=== PATIENT | female | born 1975 | race Caucasian/White ===

== ENCOUNTER 2018-08-04 11:01 | Day surgery (SDC) | payer BC, OTHER ==
[2018-08-01 11:19] VITALS: BMI 30.2
[~2018-08-04 11:01] MED LIST: LACTATED RINGERS 1,000 ML IV SCH; LIDOCAINE 1% 20 ML VIAL (10MG/ML) FOR IV START INTRADERMA PRN
[2018-08-04 11:35] VITALS: TEMP 97.7
[2018-08-04] MEDS ORDERED: PROPOFOL 10 MG/ML 20 ML VIAL IV ONE (12:13)
--- NOTE | 2018-08-04 12:29 | P.PCN ---
Date of Procedure: 08/04/18 Procedure(s) Performed: BRIEF HISTORY: Patient is a 42-year-old pleasant white female, scheduled for an elective colonoscopy as a part of evaluation of chronic constipation for the last several years duration. However his symptoms have been progressively getting worse associated with abdominal bloating and abdominal pain. PROCEDURE PERFORMED: Colonoscopy. PREOPERATIVE DIAGNOSIS: Change in bowel habits/abdominal pain. IV sedation per Anesthesia. PROCEDURE: After informed consent was obtained, the patient, was brought into the endoscopy unit. IV sedation was administered by Anesthesia under continuous monitoring. Digital rectal examination was normal. Initially the Olympus CF- 160 flexible video colonoscope was then inserted in the rectum, gradually advanced into the cecum without any difficulty. Careful examination was performed as the scope was gradually being withdrawn. Ileocecal valve and the appendiceal orifice were visualized and appeared normal. Prep was excellent. Mucosa of the cecum, ascending colon, transverse colon, descending colon, sigmoid colon, and rectum appeared normal. Retroflexion was performed in the rectum and no lesions were seen. The patient tolerated the procedure well. IMPRESSION: Normal-appearing colon from rectum to cecum with no evidence of colorectal neoplasia. RECOMMENDATIONS: Findings of this examination were discussed with the patient as well as her family. She was advised to have a repeat colonoscopy in 10 years.
[2018-08-04 12:49] VITALS: PULSE 66; RESP 18
[2018-08-04 13:06] VITALS: BP 117/80
== END 2018-08-04 13:46 | disposition home or self-care (01) ==
LOC: ORWHC2ENDO 11:01
PROVIDERS: ATTEND Internal Medicine Gastroenterology
DX: K59.09 Other constipation (principal); R10.9 Unspecified abdominal pain; R14.0 Abdominal distension (gaseous); J45.909 Unspecified asthma, uncomplicated; E07.9 Disorder of thyroid, unspecified; Z79.899 Other long term (current) drug therapy; Z87.891 Personal history of nicotine dependence
CPT/HCPCS: 81025; 45378; J2704

== ENCOUNTER → 2018-10-05 | Outpatient (CLI) | payer BC | LOC: LABWHC1 14:58 | PROVIDERS: ATTEND Internal Medicine Endocrinology, Diabetes & Metabolism | DX: E05.90 Thyrotoxicosis, unspecified without thyrotoxic crisis or storm (principal) | CPT/HCPCS: 36415; 84439; 84443; 84445; 84480 ==

== ENCOUNTER → 2018-10-18 | Outpatient (CLI) | payer BC ==
--- NOTE | 2018-10-24 09:58 | MM ---
Reason for exam: screening (asymptomatic). Last mammogram was performed 4 years and 4 months ago. Physical Findings: A clinical breast exam by your physician is recommended on an annual basis and results should be correlated with mammographic findings. MG 3D Screening Mammo W/Cad Bilateral CC and MLO view(s) were taken. Prior study comparison: June 14, 2014, mammogram, performed at [facility]. The breast tissue is heterogeneously dense. This may lower the sensitivity of mammography. There is no discrete abnormality. No significant changes when compared with prior studies. ASSESSMENT: Negative, BI-RAD 1 RECOMMENDATION: Routine screening mammogram of both breasts in 1 year.
== END | disposition home or self-care (01) ==
LOC: RADMAMWWP 11:28
PROVIDERS: ATTEND Family Medicine
DX: Z12.31 Encounter for screening mammogram for malignant neoplasm of breast (principal)
CPT/HCPCS: 77063; 77067

== ENCOUNTER → 2018-10-25 | Outpatient (CLI) | payer BC ==
--- NOTE | 2018-10-26 09:44 | NM ---
EXAMINATION TYPE: NM thyroid image w uptake DATE OF EXAM: 10/26/2018 COMPARISON: Prior exam 12/06/2014 HISTORY: Thyrotoxicosis TECHNIQUE: Thyroid iodine uptake is calculated and images performed after the oral administration of 309 uCi 1-123 Capsule. FINDINGS: There is probable increased activity throughout the gland. The gland may be enlarged. The 4 hour iodine uptake is calculated at 24.5% (normal range 8-14%). The 24-hour iodine uptake is calcula caty at 54.0% (normal range 15-35%). IMPRESSION: Correlate for Graves' disease.
== END | disposition home or self-care (01) ==
LOC: RADNMMAIN 08:45
PROVIDERS: ATTEND Internal Medicine Endocrinology, Diabetes & Metabolism
DX: E05.90 Thyrotoxicosis, unspecified without thyrotoxic crisis or storm (principal); E04.1 Nontoxic single thyroid nodule
CPT/HCPCS: 78014; A9516

== ENCOUNTER → 2018-12-18 | Outpatient (CLI) | payer BC ==
[2018-12-18 23:41] LABS: T4, Free (Free Thyroxine) 0.8 ng/dL (0.80-1.80)
== END | disposition home or self-care (01) ==
LOC: LABWHC1 14:56
PROVIDERS: ATTEND Internal Medicine Endocrinology, Diabetes & Metabolism
DX: E05.90 Thyrotoxicosis, unspecified without thyrotoxic crisis or storm (principal)
CPT/HCPCS: 36415; 84439; 84443; 84481

== ENCOUNTER → 2019-04-07 | Outpatient (CLI) | payer BC ==
[2019-04-07 21:11] LABS: T4, Free (Free Thyroxine) 0.7 ng/dL (0.80-1.80)
== END | disposition home or self-care (01) ==
LOC: LABWHC1 08:09
PROVIDERS: ATTEND Internal Medicine Endocrinology, Diabetes & Metabolism
DX: E04.1 Nontoxic single thyroid nodule (principal); E05.90 Thyrotoxicosis, unspecified without thyrotoxic crisis or storm
CPT/HCPCS: 36415; 84439; 84443; 84480

== ENCOUNTER → 2019-04-07 | Outpatient (CLI) | payer BC ==
[2019-04-07 08:40] LABS: Basophils % (A) 1 %; Eosinophils # (A) 0.2 k/uL (0-0.7); Eosinophils % (A) 5 %; HCT 37.3 % (34.0-46.0); HGB 12.4 gm/dL (11.4-16.0); Lymphocytes # (A) 1.3 k/uL (1.0-4.8); Lymphocytes % (A) 28 %; MCH 31.9 pg (25.0-35.0); MCHC 33.2 g/dL (31.0-37.0); MCV 96.2 fL (80.0-100.0); Mean Platelet Volume 8.8; Monocytes # (A) 0.3 k/uL (0-1.0); Monocytes % (A) 5 %; Neutrophils # (A) 2.8 k/uL (1.3-7.7); Neutrophils % (A) 59 %; Platelet Count 189 k/uL (150-450); RBC 3.88 m/uL (3.80-5.40); RDW 13.8 % (11.5-15.5); WBC 4.7 k/uL (3.8-10.6)
[2019-04-07 08:59] LABS: African American GFR (CKD) >90 (>60 ml/min/1.73 sqM); Anion Gap 5 mmol/L; Blood Urea Nitrogen 16 mg/dL (7-17); Carbon Dioxide 30 mmol/L (22-30); Chloride 105 mmol/L (98-107); Glucose 91 mg/dL (74-99); Potassium 4.1 mmol/L (3.5-5.1); Sodium 140 mmol/L (137-145)
== END | disposition home or self-care (01) ==
LOC: LABPAT 08:07
PROVIDERS: ATTEND Obstetrics & Gynecology
DX: Z01.812 Encounter for preprocedural laboratory examination (principal)
CPT/HCPCS: 80051; 82565; 82947; 84520; 85025; 86850; 86900; 86901; 87086

== ENCOUNTER 2019-04-16 05:42 | Observation (INO) | payer BC ==
[2019-04-10 10:11] VITALS: BMI 31.9
--- NOTE | 2019-04-12 11:31 | HP ---
HISTORY AND PHYSICAL H and P for surgery on April 16. This is a 43-year-old white female, 4, para 3-0-1-3. Patient presented initially to the office with irregular menses, occurring approximately every 14 to 21 days, lasting 7 days in duration. She complained that they were very heavy with large clots. She has no intermenstrual bleeding. She underwent a vaginal ultrasound as well as endometrial biopsy. All risks and benefits of the procedure have been discussed with her in detail. Option for Mirena IUD and/or endometrial ablation have both been declined. PAST MEDICAL HISTORY: Significant for asthma and thyroid disorder. PAST SURGICAL HISTORY: D and C for missed AB, left and right knee arthroscopies in 2016. ALLERGIES: None known. FAMILY HISTORY: Noncontributory. SOCIAL HISTORY: Patient admits to 3 alcoholic beverages weekly, she is a former tobacco smoker and quit in early 2018. 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 She denies illicit drug use. PHYSICAL EXAMINATION: On exam, this is a pleasant female who is 5 feet 6.5 inches, 198 pounds, BMI 31.5. Blood pressure 122/70. HEENT exam reveals no thyromegaly. Trachea midline, no obvious cervical lymphadenopathy. Breast exam reveals breasts to be bilaterally symmetric with no skin dimpling, nipple discharge, or axillary adenopathy. Chest is clear to auscultation in all crane anteriorly and posteriorly. Cardiac exam reveals regular rate and rhythm with no murmur, click, or rub. Abdomen is soft, nontender, no obvious organosplenomegaly. Extremities revealed no edema, good peripheral pulses, normal range of motion. On pelvic examination, cervix is multiparous, Pap smear is up to date and within normal limits. Uterus is small, mobile, nontender, with a small amount of descensus noted on grasping the anterior lip of the cervix with a ring forceps. Adnexa are negative, smooth, mobile and small, equal bilaterally. There is no obvious rectocele or cystocele noted. Rectal exam reveals good sphincter tone, FIT negative stool sample. Endometrial biopsy results are consistent with proliferative type endometrium with breakdown. IMPRESSION: Menometrorrhagia, normal endometrial sampling, minimal descensus. Patient declining Mirena IUD or ablation, strongly wishing for vaginal hysterectomy. PLAN: We will proceed with vaginal hysterectomy at [facility]. The patient is aware of the risks of bleeding, infection, perforation or damage to bowel, bladder, ureters, blood vessels, or indeed any pelvic or abdominal organs. She understands the risks of anesthesia to be aspiration, nerve damage, or even remotely the possibility of . The ACOG pamphlet on this procedure has been given to the patient for her thorough review. All questions answered to her satisfaction. I believe the patient understands our discussion without reservation. The remote but possible scenario of total abdominal hysterectomy is also reviewed with the patient if vaginal surgery is deemed to be unsuccessful. MMODL / IJN: [id number] /
[~2019-04-16 05:42] MED LIST changes: +DEXAMETHASONE SOD PHOSPHATE 10 MG/ML 1 ML VIAL IV ONE; -LACTATED RINGERS 1,000 ML IV SCH; +MIDAZOLAM 2 MG/2 ML VIAL IV PRN; +fentaNYL (PF) 50 MCG/ML 2 ML AMP IVP PRN
[2019-04-16] MEDS ORDERED: LACTATED RINGERS 1,000 ML IV ONE (06:26)
[2019-04-16] MEDS ORDERED: ONDANSETRON 4 MG/2 ML VIAL IVP ONE (06:27)
[2019-04-16] MEDS ORDERED: PROPOFOL 10 MG/ML 20 ML VIAL IV ONE (07:26)
[2019-04-16] MEDS ORDERED: MIDAZOLAM 2 MG/2 ML VIAL ONE (07:26)
[2019-04-16] MEDS ORDERED: MORPHINE SULFATE (PF) 0.3 MG/0.3 ML SYR ONE (07:26)
[2019-04-16] MEDS ORDERED: ePHEDrine SULFATE/0.9% NACL/PF 50 MG/5 ML SYRINGE IV ONE (07:26)
[2019-04-16] MEDS ORDERED: VASOPRESSIN 20 UNIT/ML 1 ML VIAL SQ ONE (07:45)
[2019-04-16] MEDS ORDERED: BACITRACIN 500 UNIT/GM OINT 28.4 GM TUBE TOPICAL ONE ×2 (07:56→08:04)
[2019-04-16] MEDS ORDERED: IBUPROFEN 600 MG TAB PO PRN (08:22)
[2019-04-16] MEDS ORDERED: METOCLOPRAMIDE 5 MG/ML 2 ML VIAL IVP PRN (08:22)
[2019-04-16] MEDS ORDERED: ONDANSETRON 4 MG/2 ML VIAL IVP PRN (08:22)
[2019-04-16] MEDS ORDERED: diphenhydrAMINE 50 MG/ML 1 ML VIAL IVP PRN (08:22)
[2019-04-16] MEDS ORDERED: SIMETHICONE 80 MG CHEWABLE PO PRN (08:22)
[2019-04-16] MEDS ORDERED: ZOLPIDEM 5 MG TAB PO PRN (08:22)
--- NOTE | 2019-04-16 08:22 | P.OP ---
Date of Procedure: 04/16/19 Preoperative Diagnosis: Menorrhagia, dysmenorrhea Postoperative Diagnosis: Same, normal-appearing ovaries bilaterally Procedure(s) Performed: Vaginal hysterectomy Anesthesia: CADENA Surgeon: Caterina Hummel [employer] Consultant #1: Cheko Villar Estimated Blood Loss (ml): 50 IV fluids (ml): 500 Urine output (ml): 225 Pathology: other (cervix and uterus) Condition: stable Disposition: PACU Operative Findings: Normal-appearing ovaries bilaterally, grade 2 rectocele, grade 2 cystocele Description of Procedure: Patient is brought to the operating suite where a spinal with Duramorph is placed. She is positioned in the dorsal lithotomy position. The cervix, vagina, perineal bodies are all prepped and draped in usual sterile fashion. The appropriate timeout is performed to assure proper patient and procedural identification. Urine hCG is negative, antibiotics are given. Weighted speculum was placed into the vagina. Bladder is drained for approximate 225 mL of clear yellow urine. Anterior lip of the cervix is grasped with a double- tooth tenaculum. A grade 2 cystocele along with a grade 2 rectocele is appreciated. The cervix is injected circumferentially with a dilute Pitressin solution, 10 mL used. Jerauld blade scalpel is used to incise the mucosa circumferentially with a V positioning at 6:00. A sponge rolled finger is used to sweep the mucosa from the underlying fascial plane. Peritoneum is entered at 6:00, suture tied with 2-0 Vicryl suture held with a hemostat. The large billed speculum is then placed. The mucosa is swept away from the underlying planes, to avoid any bladder and/or ureteral injury. The right uterosacral ligament is identified, clamped cut and suture tied and held laterally with a hemostat. Same procedure is carried out contralaterally. Uterine vasculature is identified, clamped cut and suture ligated. 2 additional pedicles are taken superior to the vessels. Anterior peritoneum is entered. The uterus is then "walked out" posteriorly. Nuzhat clamps are used across the final pedicles. The uterus and cervix are removed and sent to pathology for evaluation. The pedicles are tied with 0 Vicryl suture, flashed, and retied for excellent hemostasis. A sponge stick is used to identify the ovaries, they are para quite normal and therefore are left in situ per the patient's wishes. The speculum is then changed to the shallow billed speculum. The 2-0 Vicryl suture placed at 6:00 is brought around in a pursestring fashion and the peritoneum is closed. The uterosacral cardinal ligaments are now brought across to incorporate the opposite ligament as well as the vaginal mucosa. An additional yyfflk-bt-luwha sutures placed inferiorly. 2 additional yroiru-kw-mcmuu sutures are placed superiorly, and the vagina is completely closed. It is clean and dry. Hemostasis is excellent. Vagina is packed with one-inch iodophor gauze with basic tracing. Montes catheter is placed in the urine is noted to be normal and clear. All sponge needle and enhancement counts are correct at the end of the procedure. Patient is brought back to the recovery room in very stable condition with vital signs 139/80, pulse 74, 100% O2 saturation.
[2019-04-16] MEDS ORDERED: MORPHINE SULFATE 2 MG/ML SYRINGE IVP PRN (08:42)
[2019-04-16] MEDS ORDERED: NALOXONE 0.4 MG/ML 1 ML VIAL IV PRN (08:42)
[2019-04-16] MEDS: LACTATED RINGERS 1,000 ML IV SCH (13:17)
[2019-04-16] MEDS: NALBUPHINE 10 MG/ML (1 ML AMP) IV PRN ×2 (14:17→19:59)
[2019-04-16] MEDS: KETOROLAC 30 MG/ML 1 ML VIAL IVP PRN ×2 (15:59→21:59)
[2019-04-17] MEDS: KETOROLAC 30 MG/ML 1 ML VIAL IVP PRN (04:02)
[2019-04-17] MEDS: LACTATED RINGERS 1,000 ML IV SCH (06:32)
--- NOTE | 2019-04-17 07:41 | P.DS ---
Providers Date of admission: 04/16/19 22:30 Expected date of discharge: 04/17/19 Attending physician: Caterina Hummel Primary care physician: [place] [facility] Course: This is a 43-year-old female who presented with increasing menorrhagia and dysmenorrhea. After thorough consultation, she elected to proceed with vaginal hysterectomy. Patient is essentially healthy, please see my dictated history and physical for details. Patient underwent vaginal hysterectomy along with a spinal with Duramorph yesterday under my care. She did very well intraoperatively, ovaries appeared normal to inspection and therefore were left in situ per the patient's wishes. She was noted to have a rectocele and cystocele as well at the time of surgery, this was asymptomatic. Please see dictated operative note for details. This morning the patient is doing well. Vaginal packing and Montes catheter had been removed. She is passing flatus. She complains of no pain. Vital signs are stable and she is afebrile. Chest is clear in all crane. There is no CVA tenderness. Extremities are negative for edema. Patient is judged to be in very good condition for discharge home. She will follow-up with me in the office in 2 weeks. She is reminded no intercourse, tampons or douching. She will use [id number] Advil or Aleve, or ibuprofen as needed for pain. I've asked her to call me with any fevers shakes or chills, foul smelling or bloody vaginal drainage, with any issues with defecating or voiding, or indeed with any concerns. She will call with any pain not alleviated by hqaa-eqm-noeghul products. Patient Condition at Discharge: Good Plan - Discharge Summary Discharge Rx Participant: No New Discharge Prescriptions: No Action Cetirizine HCl [Zyrtec] 10 mg PO DAILY Acetaminophen Tab [Tylenol Tab] 1,000 mg PO Q6HR PRN PRN Reason: Pain Methimazole 7.5 mg PO DAILY Linaclotide [Linzess] 72 mcg PO DAILY Discharge Medication List Acetaminophen Tab [Tylenol Tab] 1,000 mg PO Q6HR PRN 04/10/19 [History] Cetirizine HCl [Zyrtec] 10 mg PO DAILY 04/10/19 [History] Linaclotide [Linzess] 72 mcg PO DAILY 04/10/19 [History] Methimazole 7.5 mg PO DAILY 04/10/19 [History] Follow up Appointment(s)/Referral(s): Caterina Hummel MD [STAFF PHYSICIAN] - 2 Weeks
--- NOTE | 2019-04-17 07:52 | P.PN ---
Progress Note - Text Date:04/16 Time:705am Patient is status post vaginal hystrectomy. Patient seen this morning with VAS score of 2. c/o of pruritus, no c/o nausea/vomiting, comfortable and doing well.
[2019-04-17 08:12] VITALS: BP 110/58; PULSE 61; RESP 18; TEMP 97.5
== END 2019-04-17 10:10 | disposition home or self-care (01) ==
LOC: OR 05:42 → 4FBP 08:17 → OR 22:29 → 4FBP 22:30
PROVIDERS: ADMIT Obstetrics & Gynecology; ATTEND Obstetrics & Gynecology
DX: N80.0 Endometriosis of uterus (principal); N92.1 Excessive and frequent menstruation with irregular cycle; N94.6 Dysmenorrhea, unspecified; N81.6 Rectocele; N81.10 Cystocele, unspecified; J45.909 Unspecified asthma, uncomplicated; E07.9 Disorder of thyroid, unspecified; Z87.891 Personal history of nicotine dependence
CPT/HCPCS: 58260; 81025; 86900; 86901; 86850; 88307; G0378 ×2; J2250; J1200; J1100; J2300; J0690; J2405; J2274; J1885 ×2; J2704

== ENCOUNTER → 2019-07-16 | Outpatient (CLI) | payer BC | END | disposition home or self-care (01) | LOC: LABWHC1 09:01 | PROVIDERS: ATTEND Internal Medicine Endocrinology, Diabetes & Metabolism | DX: E05.90 Thyrotoxicosis, unspecified without thyrotoxic crisis or storm (principal) | CPT/HCPCS: 36415; 84439; 84443; 84480 ==

== ENCOUNTER 2020-08-17 20:08 | Emergency (ER) | payer BC ==
[2020-08-17 20:23] VITALS: RESP 18
[2020-08-17] MEDS ORDERED: ACETAMINOPHEN TAB 325 MG TAB PO STA (20:35)
[2020-08-17 21:13] LABS: Basophils % (A) 0 %; Eosinophils # (A) 0.1 k/uL (0-0.7); Eosinophils % (A) 1 %; HCT 37.9 % (34.0-46.0); HGB 13.4 gm/dL (11.4-16.0); Lymphocytes # (A) 2.1 k/uL (1.0-4.8); Lymphocytes % (A) 18 %; MCHC 35.4 g/dL (31.0-37.0); MCV 93.2 fL (80.0-100.0); Mean Platelet Volume 9.3; Monocytes # (A) 0.6 k/uL (0-1.0); Monocytes % (A) 5 %; Neutrophils # (A) 8.5 k/uL (1.3-7.7); Neutrophils % (A) 75 %; Platelet Count 256 k/uL (150-450); RBC 4.06 m/uL (3.80-5.40); RDW 12.1 % (11.5-15.5); WBC 11.3 k/uL (3.8-10.6)
[2020-08-17 21:29] LABS: Albumin 4.5 g/dL (3.5-5.0); Calcium 10.4 mg/dL (8.4-10.2); Total Bilirubin 0.4 mg/dL (0.2-1.3); Total Protein 7.5 g/dL (6.3-8.2)
--- NOTE | 2020-08-17 21:34 | XR ---
EXAMINATION TYPE: XR chest 1V portable DATE OF EXAM: 08/17/2020 COMPARISON: NONE HISTORY: Short of breath TECHNIQUE: FINDINGS: Heart and mediastinum are normal. Lungs are clear. Diaphragm is normal. Bony thorax appears normal. IMPRESSION: Normal chest.
[2020-08-17 21:42] LABS: INR 0.9 (<1.2); Prothrombin Time 9.5 sec (9.0-12.0)
[2020-08-17 21:51] LABS: D-Dimer 0.71 mg/L FEU (<0.60); Partial Thromboplastin Time 21.1 sec (22.0-30.0)
[2020-08-17] MEDS ORDERED: SODIUM CHLORIDE 0.9% 1,000 ML IV ONE (22:06)
--- NOTE | 2020-08-17 22:29 | CT ---
EXAMINATION TYPE: CT chest angio for PE DATE OF EXAM: 08/17/2020 COMPARISON: None HISTORY: Cough, covid +. CT DLP: 336.5 mGycm Automated exposure control for dose reduction was used. CONTRAST: Performed with IV Contrast, patient injected with 100ml mL of Isovue 370. There are 3-D post processed images. The lungs are clear of infiltrate. There is no evidence of a pulmonary mass. There is no pleural effu krystal. Heart size is normal. There is no pericardial effusion. There is no mediastinal adenopathy. Thoracic aorta appears normal. There is no aneurysm or dissection . There are no hilar masses. There is normal contrast opacification of the pulmonary arteries. There are no filling defects. Bony thorax is intact. IMPRESSION: Negative exam. No evidence of pulmonary embolism.
[2020-08-17 22:47] VITALS: BP 122/70; PULSE 75; TEMP 97.2
--- NOTE | 2020-08-17 23:06 | ED ---
General Adult HPI - General Source: patient, RN notes reviewed, old records reviewed Mode of arrival: ambulatory Limitations: no limitations <Robert Ahn - Last Filed: 08/17/20 23:31> <Nichole Cook - Last Filed: 08/21/20 09:38> - General Chief complaint: Upper Respiratory Infection Stated complaint: +COVID, SOB Time Seen by Provider: 08/17/20 20:25 - History of Present Illness Initial comments: 44-year-old female patient who was tested positive for coronavirus on 08/02 presents to ED for evaluation. Patient reports that she is continuing to have worse of breath with exertion. Reports that she is coughing and has some chest pain with coughing. She was placed on steroids azithromycin and inhaler by her primary care provider. She is taking a multivitamin. She denies any other complaints. Systemic: Pt denies fatigue, fever/chills, rash. Pt denies weakness, night sweats, weight loss. Neuro: Pt denies headache, visual disturbances, syncope or pre-syncope. HEENT: Pt denies ocular discharge or irritation, otalgia, rhinorrhea, pharyngitis or notable lymphadenopathy. Cardiopulmonary: Pt denies chest pain, heart palpitations, dyspnea on exertion. Abdominal/GI: Pt denies abdominal pain, n/v/d. : Pt denies dysuria, burning w/ urination, frequency/urgency. Denies new onset urinary or bowel incontinence. MSK: Pt denies myalgia, loss of strength or function in extremities. Neuro: Pt denies new onset weakness, paresthesias. (Robert Ahn) - Related Data Home Medications Medication Instructions Recorded Confirmed Acetaminophen Tab [Tylenol Tab] 1,000 mg PO Q6HR PRN 04/10/19 04/10/19 Cetirizine HCl [Zyrtec] 10 mg PO DAILY 04/10/19 04/10/19 Linaclotide [Linzess] 72 mcg PO DAILY 04/10/19 04/10/19 methIMAzole [Methimazole] 7.5 mg PO DAILY 04/10/19 04/10/19 Allergies Allergy/AdvReac Type Severity Reaction Status Date / Time steroid Allergy Unknown Uncoded 08/17/20 20:23 Review of Systems ROS Other: All systems not noted in ROS Statement are negative. <Robert Ahn - Last Filed: 08/17/20 23:31> ROS Other: All systems not noted in ROS Statement are negative. <Nichole Cook - Last Filed: 08/21/20 09:38> ROS Statement: Those systems with pertinent positive or pertinent negative responses have been documented in the HPI. Past Medical History Past Medical History: Asthma, Osteoarthritis (OA), Thyroid Disorder Additional Past Medical History / Comment(s): constipation, nodule on thyroid, IRREGULAR MENSES History of Any Multi-Drug Resistant Organisms: None Reported Past Surgical History: Orthopedic Surgery Additional Past Surgical History / Comment(s): nisha knee arthroscopy (2 each knee), D & C , Past Anesthesia/Blood Transfusion Reactions: Previous Problems w/ Anesthesia Additional Past Anesthesia/Blood Transfusion Reaction / Comment(s): sister and son: PONV Past Psychological History: No Psychological Hx Reported Smoking Status: Never smoker Past Alcohol Use History: Rare Past Drug Use History: None Reported - Past Family History Mother Additional Family Medical History / Comment(s): AORTIC ANEURYSM <Robert Ahn - Last Filed: 08/17/20 23:31> General Exam Limitations: no limitations <Robert Ahn - Last Filed: 08/17/20 23:31> - General Exam Comments Initial Comments: Constitutional: NAD, AOX3, Pt has pleasant affect. HEENT: NC/AT, trachea midline, neck supple, no lymphadenopathy. Posterior pharynx non erythematous, without exudates. External ears appear normal, without discharge. Mucous membranes moist. Eyes PERRLA, EOM intact. There is no scleral icterus. No pallor noted. Cardiopulmonary: RRR, no murmurs, rubs or gallops, no JVD noted. Lungs CTAB in anterior and posterior crane. No peripheral edema. Abdominal exam: Abdomen soft and non-distended. Abdomen non-tender to palpation in all 4 quadrants. Bowel sounds active in LLQ. No hepatosplenomegaly. No ecchymosis Neuro: CN II-XII grossly intact. No nuchal rigidity. MSK: No posterior calf tenderness bilaterally, homans sign negative bilaterally. Posterior tibialis and radial pulse +2 bilaterally. Sensation intact in upper and lower extremities. Full active ROM in upper and lower extremities, 5/5 stregnth. (Robert Ahn) Course Vital Signs 08/17/20 08/17/20 20:19 22:46 Temperature 98.4 F 97.2 F L Pulse Rate 79 75 Respiratory 18 18 Rate Blood Pressure 124/81 122/70 O2 Sat by Pulse 100 100 Oximetry Procedures - [place] Protocol (Time Out) Nurse: Clara Desir <Robert Ahn - Last Filed: 08/17/20 23:31> Medical Decision Making - Lab Data Result diagrams: 08/17/20 20:56 08/17/20 20:56 - EKG Data -: EKG Interpreted by Me (and Dr. Irizarry ) <Robert Ahn - Last Filed: 08/17/20 23:31> - Lab Data Result diagrams: 08/17/20 20:56 08/17/20 20:56 <Nichole Cook - Last Filed: 08/21/20 09:38> - Medical Decision Making 44 old female patient to ED for evaluation shortness of breath with active color infection. Patient vital signs are stable, afebrile. Physical exam negative for acute pathology. Labs investigations reveal leukocytosis likely secondary steroids. CTA was negative for acute PE or pneumonia. EKG is nonischemic. Patient will be discharged. Will follow up with PCP tomorrow and return to ED with any worsening symptoms. Case discussed with Dr. Cook, (Robert Ahn) I was available for consultation in the emergency department. The history and physical exam were done by the midlevel provider. I was consulted for this patients care. I reviewed the case with the midlevel provider and based on their presentation of the patient, I agree with the assessment, medical decision making and plan of care as documented. Chart was dictated using [employer] dictation software. Attempts were made to correct any dictation errors however some typographical errors may persist. Patient seen during the Covid-19 pandemic. (Nichole Cook) - Lab Data Lab Results 08/17/20 08/17/20 08/17/20 Range/Units 20:55 20:56 20:56 WBC 11.3 H (3.8-10.6) k/uL RBC 4.06 (3.80-5.40) m/uL Hgb 13.4 (11.4-16.0) gm/dL Hct 37.9 (34.0-46.0) % MCV 93.2 (80.0-100.0) fL MCH 33.0 (25.0-35.0) pg MCHC 35.4 (31.0-37.0) g/dL RDW 12.1 (11.5-15.5) % Plt Count 256 (150-450) k/uL MPV 9.3 Neutrophils % 75 % Lymphocytes % 18 % Monocytes % 5 % Eosinophils % 1 % Basophils % 0 % Neutrophils # 8.5 H (1.3-7.7) k/uL Lymphocytes # 2.1 (1.0-4.8) k/uL Monocytes # 0.6 (0-1.0) k/uL Eosinophils # 0.1 (0-0.7) k/uL Basophils # 0.0 (0-0.2) k/uL PT 9.5 (9.0-12.0) sec INR 0.9 (<1.2) APTT 21.1 L (22.0-30.0) sec D-Dimer 0.71 H (<0.60) mg/L FEU Sodium (137-145) mmol/L Potassium (3.5-5.1) mmol/L Chloride (98-107) mmol/L Carbon Dioxide (22-30) mmol/L Anion Gap mmol/L BUN (7-17) mg/dL Creatinine (0.52-1.04) mg/dL Est GFR (CKD-EPI)AfAm (>60 ml/min/1.73 sqM) Est GFR (CKD-EPI)NonAf (>60 ml/min/1.73 sqM) Glucose (74-99) mg/dL Plasma Lactic Acid Saul (0.7-2.0) mmol/L Calcium (8.4-10.2) mg/dL Magnesium (1.6-2.3) mg/dL Ferritin (10.0-291.0) ng/mL Total Bilirubin (0.2-1.3) mg/dL AST (14-36) U/L ALT (4-34) U/L Alkaline Phosphatase (38-126) U/L Lactate Dehydrogenase (313-618) U/L Troponin I <0.012 (0.000-0.034) ng/mL C-Reactive Protein (<10.0) mg/L Total Protein (6.3-8.2) g/dL Albumin (3.5-5.0) g/dL Procalcitonin (0.02-0.09) ng/mL 08/17/20 08/17/20 08/17/20 Range/Units 20:56 20:56 20:56 WBC (3.8-10.6) k/uL RBC (3.80-5.40) m/uL Hgb (11.4-16.0) gm/dL Hct (34.0-46.0) % MCV (80.0-100.0) fL MCH (25.0-35.0) pg MCHC (31.0-37.0) g/dL RDW (11.5-15.5) % Plt Count (150-450) k/uL MPV Neutrophils % % Lymphocytes % % Monocytes % % Eosinophils % % Basophils % % Neutrophils # (1.3-7.7) k/uL Lymphocytes # (1.0-4.8) k/uL Monocytes # (0-1.0) k/uL Eosinophils # (0-0.7) k/uL Basophils # (0-0.2) k/uL PT (9.0-12.0) sec INR (<1.2) APTT (22.0-30.0) sec D-Dimer (<0.60) mg/L FEU Sodium 137 (137-145) mmol/L Potassium 4.0 (3.5-5.1) mmol/L Chloride 104 (98-107) mmol/L Carbon Dioxide 27 (22-30) mmol/L Anion Gap 6 mmol/L BUN 17 (7-17) mg/dL Creatinine 0.94 (0.52-1.04) mg/dL Est GFR (CKD-EPI)AfAm 84 (>60 ml/min/1.73 sqM) Est GFR (CKD-EPI)NonAf 73 (>60 ml/min/1.73 sqM) Glucose 97 (74-99) mg/dL Plasma Lactic Acid Saul 1.2 (0.7-2.0) mmol/L Calcium 10.4 H (8.4-10.2) mg/dL Magnesium 2.0 (1.6-2.3) mg/dL Ferritin 108.7 (10.0-291.0) ng/mL Total Bilirubin 0.4 (0.2-1.3) mg/dL AST 25 (14-36) U/L ALT 42 H (4-34) U/L Alkaline Phosphatase 76 (38-126) U/L Lactate Dehydrogenase 623 H (313-618) U/L Troponin I (0.000-0.034) ng/mL C-Reactive Protein 6.0 (<10.0) mg/L Total Protein 7.5 (6.3-8.2) g/dL Albumin 4.5 (3.5-5.0) g/dL Procalcitonin 0.02 (0.02-0.09) ng/mL - EKG Data EKG Comments: ventricular rate 75, WA interval 142, QRS 90, QT/QTC 396/442. Normal sinus rhythm, normal EKG, no concern for acute ischemia. (Robert Ahn) Disposition Is patient prescribed a controlled substance at d/c from ED?: No <Robert Ahn - Last Filed: 08/17/20 23:31> <Nichole Cook - Last Filed: 08/21/20 09:38> Clinical Impression: COVID-19 Disposition: HOME SELF-CARE Condition: Serious Instructions (If sedation given, give patient instructions): Upper Respiratory Infection (ED) Additional Instructions: Follow up with PCP tomorrow. Return to ED with any worsening symptoms. Referrals: Cody Young MD [Primary Care Provider] - 1-2 days
[2020-08-18 11:43] LABS: Ferritin 108.7 ng/mL (10.0-291.0)
== END 2020-08-17 23:18 | disposition home or self-care (01) ==
LOC: EC 20:08
DX: U07.1 COVID-19 (principal); D72.829 Elevated white blood cell count, unspecified; E04.1 Nontoxic single thyroid nodule; Z79.890 Hormone replacement therapy; Z88.8 Allergy status to other drugs, medicaments and biological substances
CPT/HCPCS: 36415; 93005; 85379; 80053; 82728; 83605; 83615; 83735; 84484; 85025; 85610; 85730; 86140; 84145; 71045; 71275; 99285; 96360; Q9967

== ENCOUNTER → 2020-11-11 | Outpatient (CLI) | payer BC ==
--- NOTE | 2020-11-11 17:29 | CT ---
EXAMINATION TYPE: CT angio chest DATE OF EXAM: 11/11/2020 5:17 PM COMPARISON: 08/17/2020. HISTORY: SOB x 4 months after having covid CT DLP: 374.3 mGycm Automated exposure control for dose reduction was used. CONTRAST: CTA scan of the thorax is performed with IV Contrast, patient injected with 60cc mL of Isovue 370, pu lmonary embolism protocol. MIP images are created and reviewed. FINDINGS: LUNGS: The lungs are grossly clear, there is no concerning parenchymal mass or nodule identified. T here is no pleural effusion or pneumothorax seen. The tracheobronchial tree is patent. MEDIASTINUM: There is satisfactory enhancement of the pulmonary artery and its branches, there is no CT evidence for pulmonary embolism. There are no greater than 1 cm hilar or mediastinal lymph nodes. No pericardial effusion is seen. OTHER: No additional significant abnormality is seen. IMPRESSION: NO ACUTE PE OR OTHER CARDIOPULMONARY ABNORMALITY.
== END | disposition home or self-care (01) ==
LOC: RADCTMAIN 16:49
PROVIDERS: ATTEND Internal Medicine
DX: R06.02 Shortness of breath (principal)
CPT/HCPCS: 71275; Q9967

== ENCOUNTER → 2021-11-10 | Outpatient (CLI) | payer BC ==
--- NOTE | 2021-11-10 22:52 | CT ---
EXAMINATION TYPE: CT sinus wo con DATE OF EXAM: 11/10/2021 COMPARISON: None available HISTORY: chronic sinusitis, itchy eyes and drainage CT DLP: 455.1 mGycm. Automated Exposure Control for Dose Reduction was Utilized. TECHNIQUE: CT scan of the sinuses is performed without contrast, axial images are obtained, coronal r eformatted images are also reviewed. FINDINGS: Minimal mucosal thickening of the inferior aspects of the nasal cavity. Slightly deviated bony nasal septum convex of the left side with a tiny bony spur. Right middle jalil bullosa with paradoxical mi ddle turbinates. Mild mucosal thickening of the alveolar recesses of the maxillary sinuses. Mucosal thickening of the right infundibulum which appears obstructed. Mucosal thickening of the left infundibulum without comp lete obstruction. Tiny bone defect is seen at the anterolateral aspect of the alveolar recess of the right maxillary sinus measuring 3 x 5 mm. Unremarkable maxillary sinuses are otherwise. Unremarkable frontal sinus, sphenoid sinus and ethmoid air cells. Patent sphenoethmoidal recesses. Clear visualized mastoid air cells. Unremarkable orbits. IMPRESSION: Mild chronic inflammatory changes of the maxillary sinuses as detailed above. Unremarkable remainder of the paranasal sinuses. Other incidental findings as described above.
== END | disposition home or self-care (01) ==
LOC: RADCTMAIN 17:53
PROVIDERS: ATTEND Otolaryngology
DX: J32.9 Chronic sinusitis, unspecified (principal)
CPT/HCPCS: 70486

== ENCOUNTER → 2023-02-17 | Outpatient (CLI) | payer BC | END | disposition home or self-care (01) | LOC: LABWHC1 10:46 | PROVIDERS: ATTEND Surgery | DX: E89.0 Postprocedural hypothyroidism (principal) | CPT/HCPCS: 36415; 82310 ==

== ENCOUNTER → 2023-03-15 | Outpatient (CLI) | payer BC | END | disposition home or self-care (01) | LOC: LABWHC1 15:34 | PROVIDERS: ATTEND Internal Medicine Endocrinology, Diabetes & Metabolism | DX: C73 Malignant neoplasm of thyroid gland (principal) | CPT/HCPCS: 36415; 84432; 84443; 86800 ==

== ENCOUNTER → 2023-06-30 | Outpatient (CLI) | payer BC | END | disposition home or self-care (01) | LOC: LABWHC1 10:42 | PROVIDERS: ATTEND Internal Medicine Endocrinology, Diabetes & Metabolism | DX: C73 Malignant neoplasm of thyroid gland (principal) | CPT/HCPCS: 36415; 84432; 84443; 86800 ==

== ENCOUNTER → 2023-11-28 | Outpatient (CLI) | payer BC ==
--- NOTE | 2023-11-30 14:13 | MM ---
Reason for Exam: Screening (asymptomatic). Last mammogram was performed 5 year(s) and 2 month(s) ago. Patient History: Menarche at age 11. First Full-Term at age 21. Hysterectomy at age 40. Risk Values: Aixa 5 year model risk: 0.9%. NCI Lifetime model risk: 8.0%. Prior Study Comparison: 06/14/2014 Screening Mammogram, [facility]. 10/18/2018 Bilateral Screening Mammogram, [facility]. Tissue Density: There are scattered areas of fibroglandular density. Findings: Analyzed By CAD. There is no suspicious group of microcalcifications or new suspicious mass. Overall Assessment: Negative, BI-RAD 1 Management: Screening Mammogram of both breasts in [address] [facility] will attempt to contact patient to return for supplemental views and ultrasound if indicated. Patient should continue monthly self-breast exams. A clinical breast exam by your physician is recommended on an annual basis. This exam should not preclude additional follow-up of suspicious palpable abnormalities. Note on Aixa scores and lifetime risk: 1. A Aixa score greater than 3% is considered moderate risk. If this is the case, consider specialist referral to assess eligibility for a risk reducing agent. 2. If overall lifetime risk for the development of breast cancer is 20% or higher, the patient may qualify for future screening with alternating mammogram and breast MRI. Electronically signed and approved by: Morro Rutledge DO
== END | disposition home or self-care (01) ==
LOC: RADMAMWWP 15:01
PROVIDERS: ATTEND Family Medicine
DX: Z12.31 Encounter for screening mammogram for malignant neoplasm of breast (principal)
CPT/HCPCS: 77063; 77067

== ENCOUNTER → 2023-11-28 | Outpatient (CLI) | payer BC ==
--- NOTE | 2023-11-28 17:57 | US ---
EXAMINATION TYPE: US thyroid st tissue head/neck DATE OF EXAM: 11/28/2023 COMPARISON: NONE CLINICAL INDICATION: Female, 48 years old with history of C73 MALIGNANT NEOPLASM OF THYROID GLAND; Th yroidectomy 2022 RIGHT: surgically absent LEFT: surgically absent ISTHMUS: surgically absent Bilateral neck scanned, no evidence of lymphadenopathy. IMPRESSION: Status post total thyroidectomy. No residual tissue or suspicious nodule is seen.
== END | disposition home or self-care (01) ==
LOC: RADUSWWP 15:04
PROVIDERS: ATTEND Internal Medicine Endocrinology, Diabetes & Metabolism
DX: E89.0 Postprocedural hypothyroidism (principal); Z85.850 Personal history of malignant neoplasm of thyroid
CPT/HCPCS: 76536

== ENCOUNTER → 2023-12-29 | Outpatient (CLI) | payer BC ==
[2023-12-29 15:23] LABS: Basophils # (A) 0.03 X 10*3/uL (0.00-0.10); Basophils % (A) 0.4 %; Eosinophils # (A) 0.17 X 10*3/uL (0.04-0.35); Eosinophils % (A) 2.5 %; HCT 38.4 % (37.2-46.3); HGB 12.6 g/dL (12.0-15.0); Lymphocytes % (A) 20.7 %; MCHC 32.8 g/dL (32.0-37.0); MCV 94.6 FL (80.0-97.0); Mean Platelet Volume 11.4 FL (9.5-12.2); Monocytes # (A) 0.42 X 10*3/uL (0.20-1.00); Monocytes % (A) 6.2 %; NRBC Per 100 WBC 0 X 10*3/uL (0.00-0.01); Neutrophils # (A) 4.73 X 10*3/uL (1.80-7.70); Neutrophils % (A) 70.1 %; Platelet Count 207 X 10*3/uL (140-440); RBC 4.06 X 10*6/uL (4.10-5.20); RDW 13.3 % (11.5-14.5); WBC 6.76 X 10*3/uL (4.50-10.00)
[2023-12-29 16:12] LABS: ALT 27 U/L (8-44); AST 26 U/L (13-35); Albumin 4.3 g/dL (3.8-4.9); Albumin/Globulin Ratio 1.65 Ratio (1.60-3.17); Alkaline Phosphatase 78 U/L (41-126); BUN/Creat Ratio 16.17 Ratio (12.00-20.00); Blood Urea Nitrogen 9.7 mg/dL (9.0-27.0); Calcium 9.3 mg/dL (8.7-10.3); Carbon Dioxide 25.3 mmol/L (21.6-31.8); Chloride 102 mmol/L (96-109); Chol/HDL Ratio 2.83 Ratio; Globulin 2.6 g/dL (1.6-3.3); Glucose 78 mg/dL (70-110); LDL Cholesterol,Calculated 120.3 mg/dL (0.0-131.0); Potassium 4.2 mmol/L (3.5-5.5); Sodium 138 mmol/L (135-145); Total Bilirubin 0.3 mg/dL (0.3-1.2); Total Protein 6.9 g/dL (6.2-8.2)
[2023-12-29 18:34] LABS: Follicle Stimulating Hormone 5.1 mIU/mL
== END | disposition home or self-care (01) ==
LOC: LABWHC1 11:32
PROVIDERS: ATTEND Internal Medicine Endocrinology, Diabetes & Metabolism
DX: Z00.01 Encounter for general adult medical examination with abnormal findings (principal); C73 Malignant neoplasm of thyroid gland; N64.89 Other specified disorders of breast
CPT/HCPCS: 36415; 80053; 80061; 82306; 83001; 83036; 84146; 84432; 84443; 85025; 86800

== ENCOUNTER → 2024-03-21 | Outpatient (CLI) | payer BC | END | disposition home or self-care (01) | LOC: LABWHC1 15:54 | PROVIDERS: ATTEND Internal Medicine Endocrinology, Diabetes & Metabolism | DX: C73 Malignant neoplasm of thyroid gland (principal) | CPT/HCPCS: 36415; 84443 ==

== ENCOUNTER → 2024-06-25 | Outpatient (CLI) | payer BC ==
--- NOTE | 2024-06-25 16:27 | US ---
EXAMINATION TYPE: US thyroid st tissue head/neck DATE OF EXAM: 06/25/2024 COMPARISON: NONE CLINICAL INDICATION: Female, 48 years old with history of C73 MALIGNANT NEOPLASM OF THYROID GLAND; th yroidectomy over 1 year ago, no issues at his time TECHNIQUE: Grayscale and color Doppler imaging of the thyroid gland. FINDINGS: GLAND SIZE: Right Lobe: Surgically absent Left Lobe: Surgically absent Isthmus Thickness: Surgically absent No residual tissue seen bilaterally Bilateral neck scanned, no evidence of lymphadenopathy. IMPRESSION: Postsurgical change with no abnormal soft tissue masses within the surgical bed. 2017 ACR TI-RADS LEVEL: TR-RADS 1 - BENIGN: No FNA *Highest TI-RADS level nodule reported [email or web address] [facility], , 06/25/2024 4:25 PM
== END | disposition home or self-care (01) ==
LOC: RADUSWWP 15:43
PROVIDERS: ATTEND Internal Medicine Endocrinology, Diabetes & Metabolism
DX: C73 Malignant neoplasm of thyroid gland
CPT/HCPCS: 76536; 84432; 84443; 86800

== ENCOUNTER → 2024-12-17 | Outpatient (CLI) | payer BC ==
[2024-12-17 18:40] LABS: Basophils # (A) 0.06 X 10*3/uL (0.00-0.10); Basophils % (A) 0.9 %; Eosinophils # (A) 0.15 X 10*3/uL (0.04-0.35); Eosinophils % (A) 2.4 %; HCT 39.2 % (37.2-46.3); HGB 12.7 g/dL (12.0-15.0); Lymphocytes # (A) 1.67 X 10*3/uL (0.90-5.00); Lymphocytes % (A) 26.3 %; MCH 32.2 pg (27.0-32.0); MCHC 32.4 g/dL (32.0-37.0); MCV 99.5 FL (80.0-97.0); Monocytes # (A) 0.44 X 10*3/uL (0.20-1.00); Monocytes % (A) 6.9 %; NRBC Per 100 WBC 0 X 10*3/uL (0.00-0.01); Neutrophils # (A) 4.01 X 10*3/uL (1.80-7.70); Neutrophils % (A) 63.2 %; Platelet Count 232 X 10*3/uL (140-440); RBC 3.94 X 10*6/uL (4.10-5.20); RDW 13.4 % (11.5-14.5); WBC 6.35 X 10*3/uL (4.50-10.00)
[2024-12-17 19:24] LABS: ALT 33 U/L (8-44); AST 27 U/L (13-35); Albumin 4.1 g/dL (3.8-4.9); Albumin/Globulin Ratio 1.86 Ratio (1.60-3.17); Alkaline Phosphatase 73 U/L (41-126); BUN/Creat Ratio 15.71 Ratio (12.00-20.00); Calcium 9.3 mg/dL (8.7-10.3); Carbon Dioxide 27.6 mmol/L (21.6-31.8); Chloride 104 mmol/L (96-109); Chol/HDL Ratio 2.99 Ratio; Globulin 2.2 g/dL (1.6-3.3); Glucose 91 mg/dL (70-110); Potassium 3.7 mmol/L (3.5-5.5); Sodium 140 mmol/L (135-145); Total Bilirubin <0.2 mg/dL (0.3-1.2); Total Protein 6.3 g/dL (6.2-8.2)
== END | disposition home or self-care (01) ==
LOC: LABWHC1 14:27
PROVIDERS: ATTEND Internal Medicine Endocrinology, Diabetes & Metabolism
DX: Z00.01 Encounter for general adult medical examination with abnormal findings (principal); E55.9 Vitamin D deficiency, unspecified; C73 Malignant neoplasm of thyroid gland
CPT/HCPCS: 36415; 80053; 80061; 82306; 83036; 84432; 84443; 85025; 86800

== ENCOUNTER → 2025-03-25 | Outpatient (CLI) | payer BC | END | disposition home or self-care (01) | LOC: LABWHC1 12:15 | PROVIDERS: ATTEND Internal Medicine Endocrinology, Diabetes & Metabolism | DX: C73 Malignant neoplasm of thyroid gland (principal) | CPT/HCPCS: 36415; 84432; 84443; 86800 ==

== ENCOUNTER → 2025-03-27 | Outpatient (CLI) | payer BC ==
--- NOTE | 2025-03-27 14:26 | US ---
EXAMINATION TYPE: US thyroid st tissue head/neck DATE OF EXAM: 03/27/2025 COMPARISON: Thyroid ultrasound 07/26/2024, 11/28/2023, ultrasound FNA thyroid 11/11/2022, nuclear medici ne thyroid imaging to 04/07/2019 CLINICAL INDICATION: Female, 49 years old with history of C74.3 MALIGNANT NEOPLASM OF THYROID GLAND; Total thyroidectomy TECHNIQUE: Grayscale and color Doppler imaging of the thyroid gland. FINDINGS: GLAND SIZE: Right Lobe: Surgically absent Left Lobe: Surgically absent Isthmus Thickness: Surgically absent NODULES No suspicious soft tissue within the thyroidectomy bed. Bilateral neck scanned, no evidence of lympha denopathy. IMPRESSION: Status post total directly. No residual tissue or suspicious nodules seen. [facility], , 03/27/2025 2:23 PM
== END | disposition home or self-care (01) ==
LOC: RADUSWWP 12:47
PROVIDERS: ATTEND Internal Medicine Endocrinology, Diabetes & Metabolism
DX: C73 Malignant neoplasm of thyroid gland (principal)
CPT/HCPCS: 76536